=== PATIENT | female | born 1995 | race Caucasian/White ===

== ENCOUNTER 2022-07-03 01:25 | Emergency (ER) | payer MEDICAID, OTHER ==
[~2022-07-03] VITALS: Ht 172.7 cm; Wt 74.8 kg
--- NOTE | 2022-07-03 02:39 | NUR ---
Patient given written and verbal discharge instructions. Patient verbalizes understanding of instructions. Patient is ambulatory with steady gait. Refuses offer of residential placement. Patient given list of available shelters in surrounding area.
== END 2022-07-03 02:40 | disposition left against medical advice (07) ==
LOC: ER 02:15
DX: T59.811A Toxic effect of smoke, accidental (unintentional), initial encounter (principal); Y92.833 Campsite as the place of occurrence of the external cause; Z59.02 Unsheltered homelessness; Z53.29 Procedure and treatment not carried out because of patient's decision for other reasons; R03.0 Elevated blood-pressure reading, without diagnosis of hypertension
CPT/HCPCS: A4663

== ENCOUNTER 2022-07-10 05:29 | Emergency (ER) | payer OTHER ==
[~2022-07-10] VITALS: Ht 175.3 cm; Wt 72.6 kg
--- NOTE | 2022-07-10 05:50 | NUR ---
Patient BIB [facility] per report, patient was seen walking in the street overstimulated. Patient was screaming and yelling. Patient stated she had 30cc shot of methamphetamine
--- NOTE | 2022-07-10 05:51 | NUR ---
Patient stated she is suicidal at this moment. Have plans to kill herself but does not want to let anyone know about her plans.
--- NOTE | 2022-07-10 05:52 | NUR ---
Juwan BAI serial #[id number] patient on hold
[2022-07-10 06:03] LABS: HEMATOCRIT 37.4 % (31.2-41.9); MEAN CORPUSCULAR HEMOGLOBIN 31.3 uug (24.7-32.8); MEAN CORPUSCULAR VOLUME 90.1 fL (75.5-95.3); PLATELET COUNT (AUTO) 294 K/uL (179-408)
--- NOTE | 2022-07-10 06:12 | NUR ---
Patient is placed on 51/50 hold by [employer]
[2022-07-10 06:19] LABS: ETHANOL < 3 MG/DL (0-0)
[2022-07-10 06:20] LABS: CARBON DIOXIDE 28 mmol/L (21-32); CHLORIDE 102 mmol/L (98-107); CREATININE 0.6 mg/dL (0.6-1.3); GLUCOSE 90 mg/dL (74-106); POTASSIUM 3.1 mmol/L (3.5-5.1); UREA NITROGEN, BLOOD 12 mg/dL (7-18)
[2022-07-10 06:25] LABS: ALANINE AMINOTRANSFERASE 29 U/L (14-59); ALKALINE PHOSPHATASE 70 U/L (50-136); ASPARTATE AMINOTRANSFERASE 16 U/L (15-37); BILIRUBIN,DIRECT 0.1 mg/dL (0.0-0.2); BILIRUBIN,TOTAL 0.2 mg/dL (0.2-1.0)
--- NOTE | 2022-07-10 06:29 | NUR ---
called Gifty MOODYwater control supervisor for 1:1 sitter, no sitter available at this time
[2022-07-10 06:33] LABS: *URINE HCG, QUAL POSITIVE (NEGATIVE)
[2022-07-10 06:38] LABS: ACETAMINOPHEN < 2.0 ug/mL (10-30)
[2022-07-10 06:46] LABS: *AMPHETAMINE, URINE POSITIVE (NEGATIVE); *CANNABINOID, URINE NEGATIVE (NEGATIVE); *COCCAINE, URINE NEGATIVE (NEGATIVE); *OPIATE, URINE NEGATIVE (NEGATIVE); *PHENCYCLIDINE SCREEN,URINE NEGATIVE (NEGATIVE)
--- NOTE | 2022-07-10 07:15 | NUR ---
SBAR report given to day shift RN Carolyn.
[2022-07-10 07:34] LABS: *BLOOD, URINE NEGATIVE (NEGATIVE); *CLARITY,URINE CLEAR (CLEAR); *COLOR,URINE YELLOW (YELLOW); *KETONES,URINE 2+ (NEGATIVE); LEUKOCYTE ESTERASE ,URINE TRACE (NEGATIVE); NITRITE, URINE NEGATIVE (NEGATIVE); UGLUCOSE NEGATIVE (NEGATIVE)
[2022-07-10 07:47] LABS: *BILIRUBIN,URIN 1+ (NEGATIVE)
[2022-07-10] MEDS ORDERED: LORAZEPAM 1 MG TABLET ONE (07:58)
[2022-07-10] MEDS ORDERED: LORAZEPAM 0.5 MG TABLET PO ONE (08:00)
--- NOTE | 2022-07-10 08:00 | NUR ---
Pt anxious and medicated with Ativan 1mg po as ordered. Found saline lock on bedside table (cath intact), pt stated "I took it out, I don't like it". Sitter is at bedside for 1:1 observation, pt given breakfast tray and eating breakfast at this time. Halley child welfare social worker here and spoke with the pt and ER physician, disposition/placement pending.
--- NOTE | 2022-07-10 08:15 | NUR ---
Patient is a 26 year old female in the ER on a [employer] 5150 hold for danger to self. [facility]. SHAWNA will continue to follow up.
--- NOTE | 2022-07-10 08:28 | NUR ---
Spoke with [facility] intake dept via telephone, requested information provied, stated they will call back if a bed is available.
--- NOTE | 2022-07-10 09:01 | NUR ---
Spoke with [facility] intake via telephone. Requested information provided, stated they will call back if a bed is available.
[2022-07-10] MEDS ORDERED: NEOMY/BACITRA/POLYMYXIN B OINT UD PACKET TP ONE (09:17)
[2022-07-10 11:31] LABS: BACTERIA,URINE FEW /HPF (NONE SEEN); RBC,URINE 0-3 /HPF (0-3); SQUAMOUS EPITHELIAL CELL,UR FEW /HPF (NONE SEEN)
--- NOTE | 2022-07-10 14:00 | NUR ---
Pt was seen by Jessie Cosby LCSW who stated pt is no longer on a 5150 Hold. Pt was given referrals for follow up and bus fair by Halley (clinical social worker). Pt given written ACI. Stressed follow up as directed.
[2022-07-10 14:22] VITALS: BP 123/78
--- NOTE | 2022-07-10 14:30 | NUR ---
Social Work consult was requested for a patient in the emergency room for mental health, homeless and substance abuse resources. Patient is a 26-year-old female. Patient presents with anxious mood and congruent affect. Patient states she does not have a primary contact. Patient states she is homeless. SHAWNA provided the patient with homeless resources for [facility] [address] [place] [address] ([phone]) and [facility] [address] [facility] [address] ([phone]). SHAWNA gave resources for [facility] [facility] [address] [facility] [address]. Patient states he is unemployed, on short term disability, and not driving. Patient signed the homeless waiver, and a copy was placed in the patients chart. SHAWNA provided the patient with a TAP card. Patient states she has a history of meth abuse and SHAWNA provided the patient with substance abuse resources for [facility] [address] [facility] [address] ([phone]), [facility] [address] [facility] [address] ([phone]), and [address] [address] ([phone]). The toxicology report was positive for amphetamines. Patient appears unmotivated for treatment. Patient states she has a history of depression and states she did see a therapist in the past but is not seeing one now. Patient denies suicidal or homicidal ideation. Patient denies auditory or visual hallucinations. SHAWNA provided the patient with mental health resources for [facility] [address] [place] [address] ([phone]). SHAWNA placed the resources in the patients chart. Patient states she will follow up with making her own arrangements for a living arrangement using the resources provided.
== END 2022-07-10 14:59 | disposition home or self-care (01) ==
LOC: ER 05:32 → EDBD 05:32 → ER 14:59
DX: F41.9 Anxiety disorder, unspecified (principal); F15.10 Other stimulant abuse, uncomplicated; F17.210 Nicotine dependence, cigarettes, uncomplicated; Z59.00 Homelessness unspecified; Z81.3 Family history of other psychoactive substance abuse and dependence; Z20.822 Contact with and (suspected) exposure to COVID-19
CPT/HCPCS: 36415; 84703; 85025; A4663; G0480